=== PATIENT | female | born 1990 | race Two or more races ===

== ENCOUNTER 2020-05-06 09:57 | Emergency (ER) | payer OTHER ==
[2020-05-06 10:08] VITALS: PULSE 82; TEMP 98.2; BMI 27.1
--- NOTE | 2020-05-06 10:38 | PDOC ---
History of Present Illness - General Chief Complaint: Vaginal Bleeding Stated Complaint: VAG BLEED / 6 WKS PREG Time Seen by Provider: 05/06/20 10:31 History Source: Patient - History of Present Illness Timing/Duration: reports: other Abdominal Pain Onset Location: reports: suprapubic Past History - Medical History Allergies/Adverse Reactions: Allergies Allergy/AdvReac Type Severity Reaction Status Date / Time No Known Allergies Allergy Verified 05/06/20 14:21 Anemia: Yes COPD: No - Reproductive History Is Patient Now?: Yes - Immunization History Immunization Up to Date: No - Psycho-Social/Smoking History Smoking History: Former smoker Have you smoked in the past 12 months: Yes Information on smoking cessation initiated: No - Substance Abuse Hx (Audit-C & DAST Scrn) How often the patient has a drink containing alcohol: Never Score: In Men: 4 or > Positive; In Women: 3 or > Positive: 0 Screen Result (Pos requires Nsg. Audit-10AR): Negative In the last yr the pt used illegal drug/Rx for NonMed reason: No Score: Yes response is considered Positive: 0 Screen Result (Positive result requires Nsg. DAST-10): Negative Review of Systems - Review of Systems Constitutional: No: Chills, Fever ABD/GI: Yes: Abdominal cramping. No: Nausea, Vomiting : No: Dysuria, Flank Pain *Physical Exam - Vital Signs Last Vital Signs Temp Pulse Resp BP Pulse Ox 98.2 F 82 18 130/49 L 100 05/06/20 10:03 05/06/20 10:03 05/06/20 10:03 05/06/20 10:03 05/06/20 10:03 - Physical Exam General Appearance: Yes: Appropriately Dressed. No: Apparent Distress HEENT: positive: Normal Voice Neck: positive: Supple Respiratory/Chest: negative: Respiratory Distress Gastrointestinal/Abdominal: positive: Tender (poprly localized mininal ttp to lower abd, NT over mcburneys), Soft Musculoskeletal: negative: CVA Tenderness Integumentary: positive: Dry, Warm Neurologic: positive: Fully Oriented, Alert, Normal Mood/Affect Medical Decision Making - Medical Decision Making 05/06/20 10:37 30 yo F, , s/p spon AB, ~ 6 weeks per dates, abd cramping w/ vag spotting since last night, no clots, dysuria, n/v/f/c. Has 1st in 4 days see exam 1st trimes bleed R/o ectopic vs spon AB vs vag bleed in nl preg Stable and well tracey w/ non-impressive abd UA -T&S -beta -US 05/06/20 14:20 Beta > 19 K with 6w1d IUP w/ FHR on US. UA with neg LE or nit, will f/u on Ucx. RH neg. Re-type sent prior to rhogam administration 05/06/20 16:13 2nd type and screen results with significant delay despite multiple calls to staff in blood bank. I was told twice by staff on the phone that resources were directed towards an emergency on the floor but that they would expedite pt's T&S. After about a total of 2 hrs wait for 2nd T&S, patient states that she would like to be discharged because she has to be at work but adamant that she will return to the ER for RhoGam injection because she has had RhoGam in the past and is familiar with complications with future pregnancies should she not get RhoGam at this time. Patient was discharged in stable conditions. Discharge - Discharge Information Problems reviewed: Yes Clinical Impression/Diagnosis: Threatened Condition: Stable Disposition: HOME - Follow up/Referral Referrals: ON STAFF,NOT [Primary Care Provider] - - Patient Discharge Instructions Patient Printed Discharge Instructions: Threatened Additional Instructions: Your ultrasound shows an approximately 6-week 1 day fetus with cardiac activity w. BHCG of > 19,000 Your blood type is O (RH-). You opted to leave and return for RhoGam injection later, as 2nd type and screen results was significantly delayed. You are informed of medical risks to future pregnancies should you not return for RhoGam, and verbalized understanding and familiarity with RhoGam as you are given injection in your first We will call you if your urine culture shows an infection in 2-3 days Please rest w/ no exertional activities, including heavy lifting and sexual intercourse Please follow up with your [facility] as already scheduled - Post Discharge Activity Work/Back to School Note: Back to Work
[2020-05-06 12:02] LABS: HCG,QUALITATIVE URINE Positive
[2020-05-06 12:05] LABS: EPI CELLS 20 /uL (0-25.1); HYALINE CASTS 1 /uL (0-3.1); URINE APPEARANCE CLEAR; URINE BACTERIA 95 /uL (0-1359); URINE BILIRUBIN NEGATIVE (NEGATIVE); URINE COLOR YELLOW; URINE GLUCOSE (UA) NEGATIVE (NEGATIVE); URINE KETONE NEGATIVE (NEGATIVE); URINE LEUK ESTERASE NEGATIVE (NEGATIVE); URINE NITRITE NEGATIVE (NEGATIVE); URINE PROTEIN NEGATIVE (NEGATIVE); URINE RBC 24 /uL (0-23.9); URINE UROBILINOGEN 0.2 mg/dL (0.2-1.0); URINE WBC 3 /uL (0-25.8)
[2020-05-06] MEDS ORDERED: RHO(D) IMMUNE GLOBULIN 1,500 UNIT DISP.SYRIN IM ONE (14:00)
[2020-05-06 16:29] VITALS: BP 130/80
== END 2020-05-06 16:30 | disposition home or self-care (01) ==
LOC: SUPCPDRO 09:57 → JER 09:57
DX: O20.0 Threatened abortion (principal)
CPT/HCPCS: 36415; 76817-TC; 81003; 84702; 84703; 86850; 86900; 86901; 86999; 87086; 99283-25

== ENCOUNTER 2020-05-07 10:20 | Emergency (ER) | payer OTHER ==
[2020-05-07 10:24] VITALS: BP 112/69; PULSE 85; TEMP 98.3; BMI 27.1
[2020-05-07] MEDS ORDERED: RHO(D) IMMUNE GLOBULIN 1,500 UNIT DISP.SYRIN IM ONE (10:26)
--- NOTE | 2020-05-07 11:00 | PDOC ---
Documentation entered by Charline Mcghee SCRIBE, acting as scribe for Trevor Calderón MD. Trevor Calderón MD: This documentation has been prepared by the mattibeLitzy Xhesika, SCRIBE, under my direction and personally reviewed by me in its entirety. I confirm that the documentation accurately reflects all work, treatment, procedures, and medical decision making performed by me. History of Present Illness - General Chief Complaint: Revisit, Lab Variance Stated Complaint: VACCINE Time Seen by Provider: 05/07/20 10:26 History Source: Patient Exam Limitations: No Limitations - History of Present Illness Initial Comments: 05/07/20 10:48 The patient is a 30 year old female, , s/p spon AB, ~ 6 weeks per dates, with no PMH of who presents to the ED for RhoGam injection. Pt was seen here in the ED yesterday (05/06/20) for vaginal spotting, US was unremarkable however, pt was dxc without 2nd type in screen (lab delay) because she had to be at work and told staff she would return today for RhoGam injection. Pt denies any complaints while in the ED. Pt states she has an appointment with her OBGYN coming up. Allergy: NKDA Social: Denies alcohol, cigarette or drug use. PCP: Dr. Lety Alaniz OBGYN: @ [facility] Past History - Medical History Allergies/Adverse Reactions: Allergies Allergy/AdvReac Type Severity Reaction Status Date / Time No Known Allergies Allergy Verified 05/06/20 14:21 Anemia: Yes COPD: No - Reproductive History Is Patient Now?: Yes (#): 1 Para: 0 - Immunization History Immunization Up to Date: No - Psycho-Social/Smoking History Smoking History: Never smoked Have you smoked in the past 12 months: Yes - Substance Abuse Hx (Audit-C & DAST Scrn) How often the patient has a drink containing alcohol: Never Score: In Men: 4 or > Positive; In Women: 3 or > Positive: 0 Screen Result (Pos requires Nsg. Audit-10AR): Negative In the last yr the pt used illegal drug/Rx for NonMed reason: No Score: Yes response is considered Positive: 0 Screen Result (Positive result requires Nsg. DAST-10): Negative Review of Systems - Review of Systems Able to Perform ROS?: Yes Comments:: 05/07/20 10:48 A complete review of 10 out of 10 review of systems is taken and is negative apart from what is previously mentioned below and in the HPI. *Physical Exam - Vital Signs Last Vital Signs Temp Pulse Resp BP Pulse Ox 98.3 F 85 18 112/69 100 05/07/20 10:22 05/07/20 10:22 05/07/20 10:22 05/07/20 10:22 05/07/20 10:22 - Physical Exam 05/07/20 10:48 Vitals: Triage Vital signs reviewed General Appearance: no acute distress, well nourished well developed, Chest Wall: Nontender Cardiac: Regular rate and rhythm, no murmurs, no rubs, no gallops, Lungs: Clear to auscultation bilateral, good air movement bilaterally, Abdomen: Soft, nondistended, normal bowel sounds, nontender to palpation Extremities: Full range of motion to all extremities, no cyanosis, clubbing, or edema Skin: Warm and dry, no rashes or lesions, no petechiae Neuro: AOX3; Cranial Nerves 2-12 grossly c intact, Strength intact to all extremities, Sensation intact to all extremities, gait normal Psych: normal mood, normal affect Medical Decision Making - Medical Decision Making 05/07/20 10:59 G2, P1 LMP March approximately 6 weeks by date Rh- was here in the ED yesterday but secondary to delay in obtaining blood type did not want a wait for RhoGam returns today for RhoGam shot Labs reviewed with patient ultrasound reviewed with patient patient well- appearing no apparent distress no abdominal pain RhoGam given has [employer] [employer] follow- up Findings, need for follow-up with strict return instructions discussed with patient. Discharge - Discharge Information Problems reviewed: Yes Clinical Impression/Diagnosis: Need for rhogam due to Rh negative mother Disposition: HOME - Admission No - Follow up/Referral Referrals: ON STAFF,NOT [Primary Care Provider] - Kendrick Lewis MD [Staff Physician] - - Patient Discharge Instructions Patient Printed Discharge Instructions: Threatened , name="name" Additional Instructions: Follow-up with your [facility] this week. Return to ED for any severe pain heavy bleeding greater than 2-3 pads an hour dizziness lightheadedness or for any concerns. - Post Discharge Activity
== END 2020-05-07 11:33 | disposition home or self-care (01) ==
LOC: JERFT 10:20 → SUPCPDRO 10:20 → JERFT 11:33
PROC: 3E0234Z Introduction of Serum, Toxoid and Vaccine into Muscle, Percutaneous Approach (ICD-10-PCS; principal; 2020-05-07)
DX: O36.0910 Maternal care for other rhesus isoimmunization, first trimester, not applicable or unspecified (principal)
CPT/HCPCS: 99283-25; J1561

== ENCOUNTER 2020-06-04 12:04 | Emergency (ER) | payer OTHER ==
[2020-06-04] MEDS ORDERED: IBUPROFEN 600 MG TABLET (FP) PO ONE (12:07)
--- NOTE | 2020-06-04 12:07 | PDOC ---
Rapid Medical Evaluation Time Seen by Provider: 06/04/20 12:05 Medical Evaluation: Allergies Allergy/AdvReac Type Severity Reaction Status Date / Time No Known Allergies Allergy Verified 05/06/20 14:21 06/04/20 12:05 I have performed a brief in-person evaluation of this patient. CC: left ear pain s/p neti pot use PE: no tragal or pinna tenderness Orders: Motrin Patient will proceed to ED for further evaluation. Discharge Disposition - Diagnosis Left ear pain - Referrals - Patient Instructions - Post Discharge Activity
[2020-06-04 12:13] VITALS: BP 120/61; PULSE 104; TEMP 98.2; BMI 27.9
--- NOTE | 2020-06-04 12:30 | PDOC ---
History of Present Illness - General Chief Complaint: Ear Problem Stated Complaint: EAR PAIN Time Seen by Provider: 06/04/20 12:05 - History of Present Illness Initial Comments: 06/04/20 12:27 30-year-old female 3 months presents for evaluation of ear left ear pain x3 months Past History - Medical History Allergies/Adverse Reactions: Allergies Allergy/AdvReac Type Severity Reaction Status Date / Time No Known Allergies Allergy Verified 06/04/20 12:11 Home Medications: Ambulatory Orders Neomycin/Polymyxin B/Hydrocort [Naevflkw-[id number] Ear Susp] 10 ml QID 7 Days #1 drops.susp 06/04/20 Anemia: Yes COPD: No - Reproductive History Is Patient Now?: No (#): 1 Para: 0 - Immunization History Immunization Up to Date: No - Psycho-Social/Smoking History Smoking History: Never smoked Have you smoked in the past 12 months: No Information on smoking cessation initiated: No - Substance Abuse Hx (Audit-C & DAST Scrn) How often the patient has a drink containing alcohol: Never Score: In Men: 4 or > Positive; In Women: 3 or > Positive: 0 Screen Result (Pos requires Nsg. Audit-10AR): Negative Review of Systems - Review of Systems Constitutional: No: Fever HEENTM: Yes: Ear Pain *Physical Exam - Vital Signs Last Vital Signs Temp Pulse Resp BP Pulse Ox 98.2 F 104 H 18 120/61 99 06/04/20 12:07 06/04/20 12:07 06/04/20 12:07 06/04/20 12:07 06/04/20 12:07 - Physical Exam General Appearance: Yes: Nourished, Appropriately Dressed. No: Apparent Distress HEENT: positive: Symmetrical, Other (Right ear and tympanic membrane are normal canal is normal on the right left ear canal is edematous erythemic with purulent discharge tympanic membrane is poorly visualized however non-erythemic) Neck: positive: Supple Respiratory/Chest: negative: Respiratory Distress Musculoskeletal: positive: Normal Inspection Extremity: positive: Normal Inspection Integumentary: positive: Normal Color, Dry, Warm Neurologic: positive: live out nanny II-XII NML intact, Fully Oriented, Alert, Normal Mood/Affect ED Treatment Course - Medications Given in the ED: ED Medications Discontinued Medications Generic Name Dose Route Start Last Admin Trade Name Freq PRN Reason Stop Dose Admin Ibuprofen 600 mg 06/04/20 12:07 06/04/20 12:24 Motrin - PO 06/04/20 12:08 600 mg ONCE ONE Administration Medical Decision Making - Medical Decision Making 06/04/20 12:28 Neomycin polymyxin category C this discussed with pharmacist no transdermal absorption. Neomycin polymyxin Hydrocort 4 times daily follow-up with ENT I have reviewed the pathophysiology with the patient. They are in agreement with the treatment plan all questions were answered to their satisfaction. Understanding for follow-up without fail was also conveyed to the patient. Again they are in agreement. Discharge - Discharge Information Problems reviewed: Yes Clinical Impression/Diagnosis: Left ear pain, Otitis externa of left ear Condition: Stable Disposition: HOME - Admission No - Additional Discharge Information Prescriptions: Neomycin/Polymyxin B/Hydrocort [Loeghaji-Yemhtsvlf-Ns Ear Susp] 10 ml QID 7 Days #1 drops.susp - Follow up/Referral Referrals: ON STAFF,NOT [Primary Care Provider] - Jl Mckeon MD [Staff Physician] - - Patient Discharge Instructions Additional Instructions: Please use the eardrops as directed and without fail follow-up with ear nose and throat doctor in 1 to 2 days for further evaluation and treatment options. Tylenol only for pain and return to the emergency room should symptoms worsen. - Post Discharge Activity
== END 2020-06-04 12:52 | disposition home or self-care (01) ==
LOC: JER 12:04 → JERFT 12:04
DX: H60.92 Unspecified otitis externa, left ear (principal)
CPT/HCPCS: 99283-25

== ENCOUNTER 2020-12-19 08:24 | Inpatient (IN) | payer OTHER ==
[2020-12-19] MEDS ORDERED: SODIUM CHLORIDE 100 ML IVPB ONE (09:21)
[2020-12-19] MEDS ORDERED: AMPICILLIN SODIUM 2 GM VIAL ONE (09:21)
[2020-12-19] MEDS ORDERED: AMPICILLIN - 2 GM in SODIUM CHLORIDE 100 ML IVPB ONE (09:30)
[2020-12-19] MEDS ORDERED: PROMETHAZINE HCL 25 MG/1 ML VIAL IVPUSH ONE (09:33)
[2020-12-19] MEDS ORDERED: BUTORPHANOL TARTRATE 2 MG/ML VIAL IVPB ONE (09:33)
[2020-12-19] MEDS ORDERED: ELECTROLYTE-148 SOLN 1,000 ML IV SCH (09:45)
[2020-12-19 10:10] VITALS: BMI 34.4
[2020-12-19] MEDS ORDERED: BUTORPHANOL TARTRATE 2 MG/ML VIAL ONE (10:28)
[2020-12-19] MEDS ORDERED: PROMETHAZINE HCL 25 MG/1 ML VIAL ONE (10:28)
[2020-12-19] MEDS ORDERED: OXYTOCIN 30 UNITS in 0.9% NS 30 UNIT/500 ML INFUS.BAG IVPB ONE (10:36)
[2020-12-19 10:39] LABS: BASO % 0.4 % (0-2.0); EOS % 2.1 % (0-4.5); HEMATOCRIT 35.2 % (32.4-45.2); HEMOGLOBIN 12.1 GM/dL (10.7-15.3); LYMPH % 10.1 % (8-40); MCH 31.7 pg (25.7-33.7); MCHC 34.3 g/dl (32.0-36.0); MEAN CELL VOLUME 92.4 fl (80-96); MEAN PLT VOLUME 9.9 fl (7.5-11.1); MONO % 6.5 % (3.8-10.2); NEUT % 80.9 % (42.8-82.8); PLATELET COUNT 272 K/MM3 (134-434); RDW 13.9 % (11.6-15.6); WHITE BLOOD COUNT 18.2 K/mm3 (4.0-10.0)
[2020-12-19] MEDS ORDERED: OXYTOCIN 30 UNITS in 0.9% NS 30 UNIT/500 ML INFUS.BAG IVPB SCH (10:45)
[2020-12-19 10:48] LABS: INR 0.97 (0.83-1.09); PROTHROMBIN TIME (PATIENT) 11.8 SEC (9.7-13.0)
[2020-12-19 10:51] LABS: ACTIVATED PTT 25.6 SECONDS (25.2-36.5)
[2020-12-19 11:02] LABS: BLOOD UREA NITROGEN 9.7 mg/dL (7-18); CALCIUM 9.2 mg/dL (8.5-10.1)
[2020-12-19 11:05] LABS: CREATININE 0.4 mg/dL (0.55-1.3)
[2020-12-19] MEDS ORDERED: OXYTOCIN 20 UNITS in 0.9% NS 20 UNIT/1,000 ML INFUS.BAG IV ONE (11:59)
[2020-12-19] MEDS ORDERED: BISACODYL 10 MG SUPP.RECT RC PRN (12:31)
[2020-12-19] MEDS ORDERED: METHYLERGONOVINE MALEATE 0.2 MG/1 ML AMP IM PRN (12:31)
[2020-12-19] MEDS ORDERED: BENZOCAINE 20% 57 GM BOTTLE TP PRN (12:31)
[2020-12-19] MEDS ORDERED: WITCH HAZEL 50% (TUCKS) 40 PAD/JAR PAD TP PRN (12:31)
[2020-12-19] MEDS ORDERED: BENZOCAINE 28 GM HEMORRHOIDAL OINTMENT TP PRN (12:31)
[2020-12-19] MEDS ORDERED: OXYTOCIN 20 UNITS in 0.9% NS 20 UNIT/1,000 ML INFUS.BAG IV SCH (12:45)
[2020-12-19 12:53] LABS: SYPHILIS W/ RPR CONF NON-REACTIVE (NONREACTIVE)
[2020-12-19 13:22] LABS: HIV INTERPRETATION NEGATIVE (NEGATIVE)
[2020-12-19] MEDS ORDERED: AMPICILLIN - 1 GM in SODIUM CHLORIDE 100 ML IVPB SCH (13:30)
[2020-12-19 13:54] LABS: CORD BASE EXCESS -4.7 mmol/L (0-2); CORD PCO2 51.2 mmHg (30-78); CORD pH 7.27 (7.14-7.44)
[2020-12-19 14:03] LABS: CORD HCO3 19.9 mmHg (20-29); CORD PCO2 59.4 mmHg (30-78); CORD pH 7.143 (7.14-7.44)
[2020-12-19] MEDS: IBUPROFEN 600 MG TABLET (FP) PO PRN (17:13)
[2020-12-19] MEDS: FERROUS SO4 325 MG TABLET (FP) PO SCH (17:13)
[2020-12-19] MEDS: ACETAMINOPHEN 325 MG TABLET (FP) PO PRN (17:14)
[2020-12-20] MEDS: IBUPROFEN 600 MG TABLET (FP) PO PRN ×2 (06:22→18:01)
[2020-12-20] MEDS: ACETAMINOPHEN 325 MG TABLET (FP) PO PRN ×2 (06:26→18:01)
[2020-12-20 07:50] LABS: BASO % 0.6 % (0-2.0); EOS % 2.9 % (0-4.5); HEMATOCRIT 33.4 % (32.4-45.2); HEMOGLOBIN 11.6 GM/dL (10.7-15.3); LYMPH % 16.9 % (8-40); MCH 32.2 pg (25.7-33.7); MCHC 34.8 g/dl (32.0-36.0); MEAN CELL VOLUME 92.6 fl (80-96); MONO % 6.4 % (3.8-10.2); NEUT % 73.2 % (42.8-82.8); PLATELET COUNT 259 K/MM3 (134-434); RBC 3.61 M/mm3 (3.60-5.2); RDW 14.1 % (11.6-15.6); WHITE BLOOD COUNT 17.2 K/mm3 (4.0-10.0)
[2020-12-20] MEDS: PRENATAL VITAMINS W/ FOLIC ACID TABLET (FP) PO SCH (10:16)
[2020-12-20] MEDS: FERROUS SO4 325 MG TABLET (FP) PO SCH ×2 (10:16→18:01)
[2020-12-20] MEDS ORDERED: SENNOSIDES/DOCUSATE COMBO (SENNA PLUS) TABLET (UD) PO PRN (22:00)
[2020-12-20 22:39] VITALS: TEMP 98.6
[2020-12-21] MEDS: FERROUS SO4 325 MG TABLET (FP) PO SCH ×2 (08:44→17:22)
[2020-12-21] MEDS: ACETAMINOPHEN 325 MG TABLET (FP) PO PRN (09:54)
[2020-12-21] MEDS: IBUPROFEN 600 MG TABLET (FP) PO PRN (09:54)
[2020-12-21] MEDS: PRENATAL VITAMINS W/ FOLIC ACID TABLET (FP) PO SCH (09:54)
[2020-12-21 12:25] VITALS: BP 105/70; PULSE 83
== END 2020-12-21 18:00 | disposition home or self-care (01) | DRG 560 ==
LOC: JDEL 08:24 → JLDR 08:55 → J3W 13:50
PROVIDERS: ADMIT Obstetrics & Gynecology; ATTEND Obstetrics & Gynecology
PROC: 10E0XZZ Delivery of Products of Conception, External Approach (ICD-10-PCS; principal; 2020-12-19)
DX: O24.410 Gestational diabetes mellitus in pregnancy, diet controlled (principal); Z3A.39 39 weeks gestation of pregnancy; Z37.0 Single live birth
CPT/HCPCS: 36415; 36600; 59409; 80048; 82803; 82962; 85025; 85461; 85610; 85730; 86780; 86850; 86900; 86901; 86999; 87389; C9803; U0003; U0005